=== PATIENT | female | born 2000 | race Caucasian/White ===

== ENCOUNTER → 2020-08-06 | Outpatient (CLI) | payer BC ==
[~2020-08-06] MED LIST: AMITRIPTYLINE H10 M1 PO; DOXYCYCLINE 10100 MG PO; DRIZALMA SPRINK20 MG PO; PREDNISONE20 MG PO; TOPAMAX50 MG PO
== END ==
LOC: COL.RAD 14:00
DX: G43.909 Migraine, unspecified, not intractable, without status migrainosus (principal)

== ENCOUNTER → 2020-11-08 | Outpatient (CLI) | payer BC | LOC: COL.RAD 13:48 | DX: E04.2 Nontoxic multinodular goiter (principal); E07.89 Other specified disorders of thyroid; E06.3 Autoimmune thyroiditis; R09.89 Other specified symptoms and signs involving the circulatory and respiratory systems ==

== ENCOUNTER → 2021-04-15 | Outpatient (CLI) | payer BC | LOC: COL.RAD 12:04 | DX: Z32.01 Encounter for pregnancy test, result positive (principal); Z3A.01 Less than 8 weeks gestation of pregnancy ==

== ENCOUNTER → 2023-11-30 | Outpatient (CLI) | payer OTHER ==
[~2023-11-30] MED LIST changes: +NS IV SCH; +SINCALIDE IV SCH
== END ==
LOC: COL.RAD 06:50
DX: R10.11 Right upper quadrant pain (principal); R11.0 Nausea
CPT/HCPCS: A9537-JZ

== ENCOUNTER 2024-04-12 09:14 | Emergency (ER) | payer OTHER ==
[~2024-04-12] VITALS: Ht 157.5 cm; Wt 41.0 kg
[~2024-04-12 09:14] MED LIST changes: -NS IV SCH; -SINCALIDE IV SCH
[2024-04-12 09:23] VITALS: TEMP 98.6
[2024-04-12] MEDS ORDERED: LORazepam 2 MG/ML 1 ML VIAL IV ONE ×2 (09:45→11:30)
[2024-04-12 09:51] LABS: BASO # 0.1 K/mm3 (0.0-0.2); BASO % 0.4 % (0.0-2.0); EOS # 0.8 K/mm3 (0.0-0.7); EOS % 6.9 % (0.0-4.0); GRAN # 6.4 K/mm3 (1.4-6.5); GRAN % 55.3 % (42.2-75.2); HEMOGLOBIN 12.8 g/dl (12.5-16.0); LYMPH # 3.8 K/mm3 (1.2-3.4); LYMPH % 32.3 % (20.0-51.0); MEAN CELL VOLUME 85 fl (80.0-100.0); MEAN CORPUSCULAR HEMOGLOBIN 27 pg (27-31); MEAN CORPUSCULAR HGB CONC 32 g/dl (33.0-37.0); MEAN PLATELET VOLUME 8.8 fl (7.4-10.4); MONO # 0.6 K/mm3 (0.1-0.6); MONO % 4.8 % (1.7-9.3); PLATELET COUNT 568 K/mm3 (130-400); RED BLOOD COUNT 4.69 M/mm3 (4.10-5.30); REDCELL DISTRIBUTION WIDTH-CV 13.5 % (11.5-14.5)
[2024-04-12] MEDS ORDERED: NS 1,000 ML IV ONE (10:00)
[2024-04-12 10:33] LABS: ALBUMIN 4.2 g/dL (3.5-5.0); BILIRUBIN,TOTAL 0.5 mg/dL (0.2-1.2); CALCIUM 9.2 mg/dL (8.4-10.2); CREATININE, serum 0.78 mg/dL (0.57-1.11); POTASSIUM 4.1 mEq/L (3.5-4.5); TOTAL PROTEIN 7.7 g/dl (6.2-8.1)
[2024-04-12 10:53] LABS: PROLACTIN 12.1 ng/mL (5.18-26.53)
[2024-04-12 11:25] VITALS: BP 128/89; PULSE 96
[2024-04-12] MEDS ORDERED: Haloperidol Lactate 5 MG/ML VIAL IV ONE (11:30)
== END 2024-04-12 11:40 | disposition home or self-care (01) ==
LOC: COL.ER 09:14
PROVIDERS: Personal Emergency Response Attendant
DX: F44.9 Dissociative and conversion disorder, unspecified (principal); R45.1 Restlessness and agitation
CPT/HCPCS: J2060; J7030